=== PATIENT | female | born 2000 | race Two or more races ===

== ENCOUNTER → 2022-11-14 | Outpatient (CLI) | payer MEDICARE, OTHER | LOC: M WHC 12:11 | PROVIDERS: ATTEND Specialist | DX: Z34.02 Encounter for supervision of normal first pregnancy, second trimester (principal) ==

== ENCOUNTER → 2022-11-14 | Outpatient (CLI) | payer MEDICARE, OTHER ==
[~2022-11-14] MED LIST: METR-265 PO; PRENTAB9 PO
[2022-11-14 17:03] LABS: HEMATOCRIT 33.6 % (36.0-47.0); MEAN CORPUSCULAR HEMOGLOBIN 30.6 pg (27.0-33.0); MEAN CORPUSCULAR HGB CONC 32.7 g/dl (32.0-36.5); MEAN CORPUSCULAR VOLUME 93.3 fl (80.0-96.0); PLATELET COUNT, AUTOMATED 318 10^3/uL (150-450); WHITE BLOOD COUNT 11.5 10^3/uL (4.0-10.0)
[2022-11-14 17:27] LABS: HIV 1&2 SCREEN NEGATIVE (NEGATIVE)
[2022-11-14 17:34] LABS: HEPATITIS C VIRUS ABY INDEX 0.08 INDEX (<0.8)
[2022-11-14 18:58] LABS: GC DNA AMPLIFICATION NEGATIVE (NEGATIVE)
== END ==
LOC: M PLALAB 12:50
PROVIDERS: ATTEND Specialist
DX: Z34.02 Encounter for supervision of normal first pregnancy, second trimester (principal); Z79.899 Other long term (current) drug therapy

== ENCOUNTER → 2022-12-18 | Outpatient (REF) | payer MEDICARE | LOC: M SFHCWAGY 16:59 | PROVIDERS: ATTEND Advanced Practice Midwife | DX: Z34.82 Encounter for supervision of other normal pregnancy, second trimester (principal) ==

== ENCOUNTER → 2022-12-27 | Outpatient (CLI) | payer MEDICAID, OTHER | LOC: M WHC 14:23 | PROVIDERS: ATTEND Specialist | DX: Z34.02 Encounter for supervision of normal first pregnancy, second trimester (principal) ==

== ENCOUNTER → 2023-01-18 | Outpatient (CLI) | payer MEDICARE ==
[2023-01-18 18:16] LABS: HEMATOCRIT 31.7 % (36.0-47.0); HEMOGLOBIN 10.1 g/dl (12.0-15.5); MEAN CORPUSCULAR HEMOGLOBIN 28.3 pg (27.0-33.0); MEAN CORPUSCULAR HGB CONC 31.9 g/dl (32.0-36.5); MEAN CORPUSCULAR VOLUME 88.8 fl (80.0-96.0); PLATELET COUNT, AUTOMATED 353 10^3/uL (150-450); RED BLOOD COUNT 3.57 10^6/uL (4.00-5.40); WHITE BLOOD COUNT 10.8 10^3/uL (4.0-10.0)
== END ==
LOC: M PLALAB 15:18
PROVIDERS: ATTEND Advanced Practice Midwife
DX: Z34.93 Encounter for supervision of normal pregnancy, unspecified, third trimester (principal); Z79.899 Other long term (current) drug therapy

== ENCOUNTER → 2023-01-18 | Outpatient (REF) | payer MEDICARE ==
[2023-01-18 21:13] LABS: GC DNA AMPLIFICATION NEGATIVE (NEGATIVE)
== END ==
LOC: M PLALAB 15:05
PROVIDERS: ATTEND Obstetrics & Gynecology
DX: Z34.93 Encounter for supervision of normal pregnancy, unspecified, third trimester (principal)

== ENCOUNTER 2023-01-20 18:39 | Outpatient (CLI) | payer MEDICARE ==
[~2023-01-20] VITALS: Ht 175.3 cm; Wt 132.4 kg
[2023-01-20] MEDS ORDERED: PRENTAB9 PO (18:57)
[2023-01-20] MEDS ORDERED: HOME MED LIST COMPLETE! XX SCH (19:00)
[2023-01-20 19:07] VITALS: BP 139/61
[2023-01-20 19:31] LABS: APPEARANCE, URINE HAZY (CLEAR); BACTERIA, URINE AUTO NEGATIVE (NEGATIVE); BILIRUBIN, URINE AUTO NEGATIVE (NEGATIVE); BLOOD, URINE BLOOD NEGATIVE (NEGATIVE); COLOR, URINE AMBER (YELLOW); GLUCOSE, URINE (UA) AUTO NEGATIVE (NEGATIVE); KETONE, URINE AUTO NEGATIVE (NEGATIVE); LEUKOCYTE ESTERASE, URINE AUTO 1+ (NEGATIVE); MUCUS, URINE SMALL (NEGATIVE); NITRITE, URINE AUTO NEGATIVE (NEGATIVE); PROTEIN, URINE AUTO 1+ mg/dL (NEGATIVE); RBC, URINE AUTO 2 /HPF (0-3); SPECIFIC GRAVITY URINE AUTO 1.025 (1.002-1.035); SQUAMOUS EPITHELIAL CELL UR AU 14 /HPF (0-6); WBC, URINE AUTO 9 /HPF (0-3)
[2023-01-20 20:49] LABS: GC DNA AMPLIFICATION NEGATIVE (NEGATIVE)
[2023-01-20] MEDS ORDERED: METR-265 PO (21:12)
== END 2023-01-20 21:04 | disposition home or self-care (01) ==
LOC: M LDO 18:39
PROVIDERS: ATTEND Obstetrics & Gynecology
DX: O26.893 Other specified pregnancy related conditions, third trimester (principal); N98.9 Complication associated with artificial fertilization, unspecified; O98.313 Other infections with a predominantly sexual mode of transmission complicating pregnancy, third trimester; A59.9 Trichomoniasis, unspecified; Z3A.31 31 weeks gestation of pregnancy
CPT/HCPCS: 59025; 81001; 87086; 87661; 87810; 87850; G0463

== ENCOUNTER 2023-01-25 14:26 | Outpatient (CLI) | payer MEDICARE ==
[~2023-01-25] VITALS: Ht 175.3 cm; Wt 134.8 kg
[2023-01-25 14:48] VITALS: BP 142/67
[2023-01-25 16:02] LABS: APPEARANCE, URINE HAZY (CLEAR); BACTERIA, URINE AUTO NEGATIVE (NEGATIVE); BILIRUBIN, URINE AUTO 1+ (NEGATIVE); BLOOD, URINE BLOOD NEGATIVE (NEGATIVE); COLOR, URINE AMBER (YELLOW); GLUCOSE, URINE (UA) AUTO NEGATIVE (NEGATIVE); KETONE, URINE AUTO NEGATIVE (NEGATIVE); LEUKOCYTE ESTERASE, URINE AUTO 2+ (NEGATIVE); MUCUS, URINE SMALL (NEGATIVE); NITRITE, URINE AUTO NEGATIVE (NEGATIVE); PROTEIN, URINE AUTO 1+ mg/dL (NEGATIVE); RBC, URINE AUTO 4 /HPF (0-3); SPECIFIC GRAVITY URINE AUTO 1.029 (1.002-1.035); SQUAMOUS EPITHELIAL CELL UR AU 20 /HPF (0-6); WBC, URINE AUTO 32 /HPF (0-3)
[2023-01-25 16:41] LABS: GC DNA AMPLIFICATION NEGATIVE (NEGATIVE)
== END 2023-01-25 16:50 | disposition home or self-care (01) ==
LOC: M LDO 14:26
PROVIDERS: ATTEND Advanced Practice Midwife
DX: O98.313 Other infections with a predominantly sexual mode of transmission complicating pregnancy, third trimester (principal); A59.9 Trichomoniasis, unspecified; Z3A.31 31 weeks gestation of pregnancy
CPT/HCPCS: 59025; 81001; 87086; 87661; 87810; 87850; G0463

== ENCOUNTER → 2023-02-01 | Outpatient (CLI) | payer OTHER | LOC: M WHC 14:21 | PROVIDERS: ATTEND Obstetrics & Gynecology | DX: Z36.2 Encounter for other antenatal screening follow-up (principal); O32.1XX0 Maternal care for breech presentation, not applicable or unspecified; Z3A.35 35 weeks gestation of pregnancy ==

== ENCOUNTER 2023-02-12 22:21 | Inpatient (IN) | payer OTHER ==
[~2023-02-12] VITALS: Ht 175.3 cm; Wt 133.1 kg
[2023-02-12] MEDS ORDERED: AZITHROMYCIN INJ 500 MG, VIAL MATE ADAPTER 1 EACH in NS 250 ML IV ONE (22:55)
[2023-02-12] MEDS ORDERED: OXYTOCIN DRIP 30 UNITS in IV 1 EA IV PRN ×4 (22:55)
[2023-02-12] MEDS ORDERED: CARBOPROST TROMETHAMINE 250 MCG/ML AMP IM PRN (22:55)
[2023-02-12] MEDS ORDERED: METHYLERGONOVINE MALEATE 0.2MG/ML 1ML VIAL IM PRN (22:55)
[2023-02-12] MEDS ORDERED: TRANEXAMIC ACID INJection 1,000 MG in NS 100 ML IV PRN (22:55)
[2023-02-12] MEDS ORDERED: BICITRA 30ML SOLN UDC PO ONE (22:55)
[2023-02-12] MEDS ORDERED: ceFAZolin SOD 3 GM IV Place Holder IV ONE (22:55)
[2023-02-12] MEDS ORDERED: ceFAZolin SOD 2 GM in IV 1 EA IV ONE (23:00)
[2023-02-12] MEDS ORDERED: ceFAZolin SOD 1 GM in D5W MINI-BAG PLUS 50 ML IV ONE (23:00)
[2023-02-12] MEDS ORDERED: ONDANSETRON 4MG 2ML VIAL As Ordered ONE (23:10)
[2023-02-12] MEDS ORDERED: KETOROLAC 60MG 2ML VIAL As Ordered ONE ×2 (23:10→23:26)
[2023-02-12] MEDS ORDERED: METOCLOPRAMIDE INJ 10MG/2ML VIAL As Ordered ONE (23:10)
[2023-02-12] MEDS ORDERED: SUCCINYLCHOLINE 100MG/5ML SYRINGE As Ordered ONE (23:10)
[2023-02-12] MEDS ORDERED: LIDOCAINE 2% 100MG/5ML SDV (FOR ANES.) As Ordered ONE (23:10)
[2023-02-12] MEDS ORDERED: propofoL 200 MG/20 ML VIAL As Ordered ONE (23:10)
[2023-02-12] MEDS ORDERED: ROCURONIUM BROMIDE 50MG/5ML VIAL As Ordered ONE (23:26)
[2023-02-12] MEDS ORDERED: MIDAZOLAM INJ 2MG/2ML VIAL As Ordered ONE (23:26)
[2023-02-12] MEDS ORDERED: MORPHINE PRES-FREE INJ 10 MG/10 ML VIAL As Ordered ONE (23:26)
[2023-02-12] MEDS ORDERED: ACETAMINOPHEN 1000MG 100ML IV BAG As Ordered ONE (23:26)
[2023-02-12] MEDS ORDERED: OXYTOCIN 30UNITS IN 0.9% NaCl 500ML IV BAG As Ordered ONE ×2 (23:26→23:38)
[2023-02-12] MEDS ORDERED: fentaNYL 100 MCG/2 ML INJECTION As Ordered ONE ×2 (23:31→23:58)
[2023-02-12 23:40] LABS: CORD GAS ABE V -7.9; CORD GAS HCO3 V 23.2 MMOL/L; CORD GAS O2 SAT V 48.8 %; CORD GAS PCO2 V 73.2 mmHg; CORD GAS PH V 7.119 UNITS; CORD GAS PO2 V 21.8 mmHg; CORD GAS SBC V 17.1 MMOL/L; CORD GAS TCO2 V 25.5 MMOL/L
[2023-02-12 23:41] LABS: HEMATOCRIT 36.7 % (36.0-47.0); HEMOGLOBIN 12.1 g/dl (12.0-15.5); MEAN CORPUSCULAR HEMOGLOBIN 28.1 pg (27.0-33.0); MEAN CORPUSCULAR VOLUME 85.2 fl (80.0-96.0); PLATELET COUNT, AUTOMATED 421 10^3/uL (150-450); RED BLOOD COUNT 4.31 10^6/uL (4.00-5.40); WHITE BLOOD COUNT 21.1 10^3/uL (4.0-10.0)
[2023-02-12 23:43] LABS: CORD GAS ABE A -10.9; CORD GAS O2 SAT A 15.3 %; CORD GAS PCO2 A 97.9 mmHg; CORD GAS PO2 A 10.9 mmHg; CORD GAS SBC A 14.4 MMOL/L
[2023-02-12 23:45] LABS: CORD GAS PH A 6.989 UNITS
[2023-02-13] VITALS (9 sets, daily range): BP systolic 117–136; BP diastolic 57–74; TEMP 97.7; O2SAT 96–99
[2023-02-13] MEDS ORDERED: LIDOCAINE 1% MDV 20ML VIAL As Ordered ONE (00:15)
[2023-02-13] MEDS ORDERED: MEPERIDINE 25 MG/ML 1ML VIAL IV PRN (00:20)
[2023-02-13] MEDS ORDERED: HYDROMORPHONE HCL 0.5 MG/ 0.5 ML SYRINGE IV PRN (00:20)
[2023-02-13] MEDS ORDERED: LR 1,000 ML IV SCH (00:20)
[2023-02-13] MEDS ORDERED: oxyCODONE 5MG TAB PO PRN (00:20)
[2023-02-13] MEDS ORDERED: ONDANSETRON 4MG 2ML VIAL IV PRN ×2 (00:20→00:45)
[2023-02-13] MEDS ORDERED: fentaNYL 100 MCG/2 ML INJECTION IV PRN (00:20)
[2023-02-13] MEDS ORDERED: DOCUSATE SODIUM 100MG CAPSULE PO PRN (00:40)
[2023-02-13] MEDS ORDERED: OXYTOCIN DRIP 30 UNITS in IV 1 EA IV SCH (00:40)
[2023-02-13] MEDS ORDERED: RHOGAM 300MCG (1500IU) INJ IM SCH (00:40)
[2023-02-13] MEDS: ACETAMINOPHEN 500 MG TAB PO SCH ×4 (00:40→18:46)
[2023-02-13] MEDS ORDERED: SIMETHICONE 80MG CHEW TAB PO PRN (00:40)
[2023-02-13] MEDS ORDERED: EPIDURAL/PCA KEYS XX PRN (00:45)
[2023-02-13] MEDS ORDERED: NALOXONE INJ 0.4MG/1ML VIAL IV PRN (00:45)
[2023-02-13] MEDS ORDERED: NS 1,000 ML IV SCH (00:45)
[2023-02-13] MEDS ORDERED: MORPHINE 1MG/ML IN 0.9% NACL 100ML IV BAG IV PRN (00:45)
[2023-02-13] MEDS ORDERED: diphenhydrAMINE 50MG/ML VIAL IV PRN (00:45)
[2023-02-13 01:08] LABS: HEMATOCRIT 37.8 % (36.0-47.0); HEMOGLOBIN 12.2 g/dl (12.0-15.5); MEAN CORPUSCULAR HEMOGLOBIN 27.9 pg (27.0-33.0); MEAN CORPUSCULAR HGB CONC 32.3 g/dl (32.0-36.5); MEAN CORPUSCULAR VOLUME 86.5 fl (80.0-96.0); PLATELET COUNT, AUTOMATED 371 10^3/uL (150-450); RED BLOOD COUNT 4.37 10^6/uL (4.00-5.40); WHITE BLOOD COUNT 21.6 10^3/uL (4.0-10.0)
[2023-02-13] MEDS ORDERED: LIDOCAINE 1% MDV 20ML VIAL SC ONE (01:20)
[2023-02-13 01:34] LABS: CREATININE FOR GFR 0.53 MG/DL (0.55-1.30)
[2023-02-13] MEDS: IBUPROFEN 600MG TAB PO SCH ×3 (05:30→18:46)
[2023-02-13] MEDS: PRENATAL VITAMINS CHEWABLE TABLET PO SCH (09:19)
[2023-02-13] MEDS: ENOXAPARIN 30MG/0.3ML SYRINGE (J1650 PER 10MG) SC SCH (11:36)
[2023-02-14] MEDS: ACETAMINOPHEN 500 MG TAB PO SCH ×2 (00:09→06:07)
[2023-02-14] MEDS: IBUPROFEN 600MG TAB PO SCH ×4 (00:10→18:21)
[2023-02-14] MEDS: ENOXAPARIN 30MG/0.3ML SYRINGE (J1650 PER 10MG) SC SCH ×2 (00:10→12:34)
[2023-02-14 02:00] VITALS: BP 126/58; O2SAT 98
[2023-02-14 06:00] VITALS: BP 133/67; O2SAT 99
[2023-02-14] MEDS ORDERED: PERCOCET 5MG/325MG TAB PO PRN (06:55)
[2023-02-14 07:58] LABS: HEMATOCRIT 28.4 % (36.0-47.0); MEAN CORPUSCULAR HEMOGLOBIN 28.7 pg (27.0-33.0); MEAN CORPUSCULAR HGB CONC 32.7 g/dl (32.0-36.5); MEAN CORPUSCULAR VOLUME 87.7 fl (80.0-96.0); PLATELET COUNT, AUTOMATED 274 10^3/uL (150-450); RED BLOOD COUNT 3.24 10^6/uL (4.00-5.40); WHITE BLOOD COUNT 18.2 10^3/uL (4.0-10.0)
[2023-02-14 08:04] LABS: HEMOGLOBIN 9.3 g/dl (12.0-15.5)
[2023-02-14] MEDS: PRENATAL VITAMINS CHEWABLE TABLET PO SCH (08:46)
[2023-02-14 10:00] VITALS: BP 133/71; O2SAT 99
[2023-02-14] MEDS: PERCOCET 5MG/325MG TAB PO PRN ×2 (17:03→21:24)
[2023-02-14 18:00] VITALS: BP 132/66; O2SAT 100
[2023-02-14 22:00] VITALS: BP 139/75; O2SAT 100
[2023-02-15] MEDS: IBUPROFEN 600MG TAB PO SCH ×3 (00:03→12:13)
[2023-02-15] MEDS: ENOXAPARIN 30MG/0.3ML SYRINGE (J1650 PER 10MG) SC SCH (00:04)
[2023-02-15 02:00] VITALS: BP 135/60; O2SAT 100
[2023-02-15] MEDS: PERCOCET 5MG/325MG TAB PO PRN (02:48)
[2023-02-15 06:00] VITALS: BP 141/71; O2SAT 99
[2023-02-15] MEDS: PRENATAL VITAMINS CHEWABLE TABLET PO SCH (08:54)
[2023-02-15] MEDS ORDERED: MEASLES,MUMPS,RUBELLA VACCINE INJ (MMR-II) SC.IMMUN ONE (09:00)
[2023-02-15 10:00] VITALS: BP 138/63; O2SAT 99
[2023-02-15 13:00] VITALS: BP 138/63; TEMP 98; O2SAT 99
[2023-02-15] MEDS ORDERED: COLA100C5 PO (14:42)
[2023-02-15] MEDS ORDERED: PERCOCET PO (14:42)
[2023-02-15] MEDS ORDERED: IBUP-1022 PO (14:42)
== END 2023-02-15 16:51 | disposition home or self-care (01) | DRG 540 ==
LOC: M LDO 22:21 → M LDI 22:51 → M OBS 02-13 01:30
PROVIDERS: ADMIT Obstetrics & Gynecology; ATTEND Obstetrics & Gynecology
PROC: 10D00Z1 Extraction of Products of Conception, Low, Open Approach (ICD-10-PCS; principal; 2023-02-12 23:00)
DX: O64.8XX0 Obstructed labor due to other malposition and malpresentation, not applicable or unspecified (principal); Z3A.34 34 weeks gestation of pregnancy; O60.14X0 Preterm labor third trimester with preterm delivery third trimester, not applicable or unspecified; O76 Abnormality in fetal heart rate and rhythm complicating labor and delivery; Z37.0 Single live birth

== ENCOUNTER 2023-10-30 23:46 | Emergency (ER) | payer MEDICAID, MEDICARE, OTHER ==
[~2023-10-30] VITALS: Ht 177.8 cm; Wt 126.4 kg
[~2023-10-30 23:46] MED LIST changes: +COLA100C5 PO; +IBUP-1022 PO; +PERCOCET PO
[2023-10-30 23:48] VITALS: BP 154/85; TEMP 98.9; O2SAT 100
[2023-10-31] MEDS: AUGMENTIN 875 MG TAB PO ONE (00:47)
[2023-10-31] MEDS ORDERED: AMOX875T2 PO (00:47)
[2023-10-31] MEDS ORDERED: KETO10TAB PO (00:47)
[2023-10-31] MEDS: KETOROLAC 60MG 2ML VIAL IM ONE (00:56)
== END 2023-10-31 00:58 | disposition home or self-care (01) ==
LOC: M ED 23:46
DX: K04.7 Periapical abscess without sinus (principal); Z79.1 Long term (current) use of non-steroidal anti-inflammatories (NSAID); Z79.2 Long term (current) use of antibiotics
CPT/HCPCS: 96372; 99282; J1885